=== PATIENT | male | born 2000 | race Two or more races ===

== ENCOUNTER 2022-01-31 10:40 | Emergency (ER) | payer MEDICAID, OTHER ==
[~2022-01-31] VITALS: Ht 172.7 cm; Wt 93.0 kg
[2022-01-31] MEDS ORDERED: SODIUM CHLORIDE 0.9% 1,000 ML IV ONE (11:15)
[2022-01-31 11:58] LABS: Basophils # (auto) 0 10 ^3/uL (0-0.2); Basophils % (auto) 0.2 % (0.0-2.0); Eosinophils # (auto) 0 10 ^3/uL (0-0.8); Eosinophils % (auto) 0.1 % (0.0-7.0); Hematocrit 39.9 % (41.0-53.0); Hemoglobin 14.3 g/dL (13.5-17.5); Lymphocytes # (auto) 1.2 10 ^3/uL (0.4-5.4); Lymphocytes % (auto) 8.9 % (10.0-50.0); Mean Corpuscular Hemoglobin 31.9 pg (28.0-32.0); Mean Corpuscular Hgb Conc. 35.8 g/dL (32.0-36.0); Monocytes # (auto) 0.7 10 ^3/uL (0-1.3); Neutrophils # (auto) 11.3 10 ^3/uL (1.6-8.6); Neutrophils % (auto) 85.8 % (37.0-80.0); Red Blood Cells 4.49 10^6/uL (4.5-5.90); Red Cell Distribution Width 12.3 % (11.8-14.3); White Blood Cell 13.2 10^3/uL (4.4-10.8)
[2022-01-31 12:15] LABS: Calcium 9.4 mg/dL (8.5-10.1)
[2022-01-31 12:19] LABS: BUN/Creatinine Ratio 13.2; Bilirubin, Total 0.4 mg/dL (0.2-1.0); Total Protein 7.4 g/dL (6.4-8.2)
[2022-01-31] MEDS ORDERED: ONDANSETRON HCL 4 MG/2 ML VIAL IV ONE (13:15)
[2022-01-31] MEDS ORDERED: MORPHINE SULFATE 4 MG/ML SYR/VIAL IV ONE (13:15)
[2022-01-31 13:45] VITALS: BP 112/59
[2022-01-31] MEDS ORDERED: IBU600T PO (14:11)
== END 2022-01-31 15:16 | disposition home or self-care (01) ==
LOC: ER 10:40 → EDBD 10:40 → ER 15:16
DX: M79.10 Myalgia, unspecified site (principal); Z79.1 Long term (current) use of non-steroidal anti-inflammatories (NSAID); V29.9XXA Motorcycle rider (driver) (passenger) injured in unspecified traffic accident, initial encounter; Y93.89 Activity, other specified; Y92.410 Unspecified street and highway as the place of occurrence of the external cause; Y99.8 Other external cause status
CPT/HCPCS: 36415; 70450; 71260; 72125; 74177; 80053; 85025; 96361; 96374; 96375; 99285; J2270; J2405; J7030; J7040; Q9967